=== PATIENT | male | born 1950 | race Caucasian/White ===

== ENCOUNTER 2019-01-19 16:08 | Emergency (ER) | payer MEDICAID ==
[~2019-01-19] VITALS: Ht 180.3 cm; Wt 65.8 kg
[2019-01-19] MEDS ORDERED: PAXIL10 MG PO (16:30)
[2019-01-19] MEDS ORDERED: ACYCLOVIR 400400 MG PO (16:30)
[2019-01-19] MEDS ORDERED: VISTARIL 25 MG25 M1 PO (16:30)
[2019-01-19] MEDS ORDERED: SYNTHROID25 MC1 PO (16:31)
[2019-01-19] MEDS ORDERED: PRINIVIL20 MG PO (16:31)
[2019-01-19] MEDS ORDERED: XANAX1 MG PO (16:31)
[2019-01-19] MEDS ORDERED: BACTRIM DS TAB1 EACH PO (17:30)
[2019-01-19] MEDS ORDERED: NORCO 5-325 TA1 EAC1 PO (17:30)
[2019-01-19 17:41] VITALS: BP 124/74
== END 2019-01-19 17:42 | disposition home or self-care (01) ==
LOC: M.ERS 16:08
DX: L02.213 Cutaneous abscess of chest wall (principal); L02.01 Cutaneous abscess of face; L02.413 Cutaneous abscess of right upper limb; L02.811 Cutaneous abscess of head [any part, except face]; I10 Essential (primary) hypertension; F41.9 Anxiety disorder, unspecified; E03.9 Hypothyroidism, unspecified